=== PATIENT | female | born 1980 | race Caucasian/White ===

== ENCOUNTER 2016-04-19 23:11 | Inpatient (IN) | payer OTHER ==
[~2016-04-19] VITALS: Ht 167.6 cm; Wt 80.0 kg
[2016-04-19] MEDS ORDERED: PRENTAB9 PO (23:15)
[2016-04-20] MEDS ORDERED: LR 1,000 ML IV SCH (00:15)
--- NOTE | 2016-04-20 00:29 | HPEPDOC ---
Obstetrical History & Physical General Date of Admission Apr 20, 2016 at 00:09 History of Present Illness 35 y/o at 39+0 for reg ctx's and had LOF just as I was starting to interview her. [place]. Copious fluid noted and nitr pos. Cx 3/80/-2. Vtx well applied. Chief Complaint: Contractions, term, LOF, term Care Care: Good Care Dating Final EDC: Apr 27, 2016 Final EDC by: LMP, 2nd trimester (US) Antepartum Course Diagnos(e)s AMA with [place] neg (girl) H/O depression currently doing well H/O exercise induced asthma Admission Weight (lbs.): 186 Past Medical History Past Obstetrical History : Past Obstetrical History: Multigravida Type of Delivery: Spontaneous Vaginal Del. 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: No pertinent history Past Medical History Medical History depression, EI asthma Family History Significant Family History: No pertinent family hx Family History no CA Social History Social history No E/T/D Marital Status: Family situation: Spouse/partner home Psychosocial History: No pertinent psych hx * Smoker: non-smoker Alcohol: denies Drugs: denies Abuse Violence Screening Have you been hit/kicked/slapp: No Have you been sexually assault: No Imunizations Tdap status: current Influenza Status: current Allergies Coded Allergies: No Known Allergies (Unverified , 04/19/16) Medications Scheduled Multivitamins/ ( 27-0.8 mg) 1 Tab Tab 1 TAB PO DAILY Physical Examination Physical Examination GENERAL: Alert and oriented times three. ABDOMEN: Gravid and non-tender to touch. FETUS: Is vertex (VTX) by sterile vaginal examination (SVE) EXTREMITIES: No edema. No clonus. Laboratory Data Urine Culture: No Growth Pertinent Laboratoy Data Blood Type: A+ RBC Antibody Screen: Negative HIV: Negative Hepatitis B: Negative Hepatitis C: Unknown Rapid Plasma Reagin: Nonreactive Rubella: Immune Varicella: Unknown Chlamydia/Gonorrhea: Negative Group B Streptococcus: Negative Quad Screen Test: Declined Cystic Fibrosis: Declined Glucose Tolerance Test: 95 Anatomy Ultrasound Ultrasound Date: Dec 07, 2015 Placenta Location: Anterior Normal Anatomy: Yes Placenta Previa: No Vaginal Examination Dilation: 3 cm Effacement: 80+% Station: -2 Cervical Consistency: Medium Cervical Position: Anterior Presentation: Cephalic presentation Position: Vertex (occiput) Assessment Variability: Moderate Accelerations: Positive Decelerations: None Tocometer Contractions: Yes Frequency: regular Assessment/Plan Assessment Presents to Labor and Delivery (L&D) at 39+0 now with SROM in the room. No VB. Pos FM. NST Cat 1. Plan Admit and orient. 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 Group B Streptococcus (GBS) negative Labs and intravenous (IV) per unit protocol. Counseled on Pitocin Anticipate ormal spontaneous delivery () C-S as appropriate. I plan to recheck her in 4 hrs and if no signif change will start pitocin then. D/W pt/ and RN. SESSIONS,EMPREATRIZ Ochoa MD Apr 20, 2016 00:28
[2016-04-20 01:16] LABS: MEAN CORPUSCULAR HEMOGLOBIN 31.7 pg (27.0-33.0); MEAN CORPUSCULAR HGB CONC 34.5 g/dl (32.0-36.5); RED CELL DISTRIBUTION WIDTH 12.5 % (11.5-14.5); WHITE BLOOD COUNT 15.3 K/mm3 (4.0-10.0)
[2016-04-20] MEDS ORDERED: NALBUPHINE HCL 10 MG/ML AMP (J2300) IV ONE (01:45)
[2016-04-20] MEDS ORDERED: PROMETHAZINE INJ 25 MG/ML VIAL (J2550) IV ONE (01:45)
[2016-04-20] MEDS ORDERED: OXYTOCIN 30 UNITS IN 0.9% NaCl 500ML IV BAG (J2590) As Ordered ONE (01:54)
[2016-04-20] MEDS ORDERED: NALOXONE INJ 0.4 MG/1 ML VIAL (J2310) As Ordered ONE (02:01)
[2016-04-20] MEDS ORDERED: OXYTOCIN DRIP 30 UNITS in APPROPRIATE DILUENT 1 EA IV SCH (02:59)
[2016-04-20] MEDS ORDERED: METOCLOPRAMIDE INJ 10MG/2ML VIAL (J2765) IV PRN (03:00)
[2016-04-20] MEDS ORDERED: IBUPROFEN 800 MG TAB PO PRN (03:00)
[2016-04-20] MEDS ORDERED: MEASLES,MUMPS,RUBELLA VACCINE INJ (MMR-II) (90707) SC SCH (03:00)
[2016-04-20] MEDS ORDERED: ACETAMINOPHEN TAB 650MG DOSE (2X325MG) PO PRN (03:00)
[2016-04-20] MEDS ORDERED: DIBUCAINE 1% OINTMENT 30GM TOP PRN (03:00)
[2016-04-20] MEDS ORDERED: RHOGAM 300 MCG (1500 IU) INJ (J2790) IM SCH (03:00)
--- NOTE | 2016-04-20 03:06 | DNPDOC ---
Delivery Note Delivery Note DATE OF DELIVERY: Apr 20, 2016 at 00:09 PREDELIVERY DIAGNOSIS: 39 0/7 weeks' gestation and labor. POST DELIVERY DIAGNOSIS: Delivered. PROCEDURE: Spontaneous vaginal delivery ONLINE ADVERTISING DIRECTOR: ANESTHESIA: Nubain/Phenergan ~1 hr prior to delivery at 5 cm dilation ESTIMATED BLOOD LOSS: 200 mL. FINDINGS: 8pound 5ounce female , 3770 gm, Score 9/9 DELIVERY SUMMARY: Progressed quickly and was C/C/+1 when I was called, lots of room. Test push with great descent, I quickly gowned/gloved. Great control and del'd the vtx and shoulders w/o delay. To abd. Cord C/C. Plac intact with slight traction/massage. Pit going and fundus firm. Small 1st degr lac repaired with 3-0 vicryl. Good cosmesis/hemostasis. Sessions MD BERKOWITZ,EMPERATRIZ Ochoa MD Apr 20, 2016 03:06
[2016-04-20 05:29] VITALS: BP 136/73
[2016-04-20] MEDS: PRENATAL VITAMIN TAB PO SCH (09:02)
[2016-04-20] MEDS: DOCUSATE SODIUM 100 MG CAP PO SCH ×2 (09:02→21:53)
[2016-04-20 18:16] VITALS: BP 123/78
[2016-04-21 06:03] VITALS: BP 120/69
--- NOTE | 2016-04-21 07:03 | IPNPDOC ---
Text Note Date of Service The patient was seen on 04/21/16. NOTE prog note on 12FEB at 0237 States feeling well, no complaints. Bonding, nursing well, VB slowing, no signif pain, eating, ambulatory. VSS Ut at U-2, firm LE no CCE a/p: Doing well, d/c today, to bonding if infant not d/c'd. Sessions VS,Rafa, I+O VSRafa I+O Vital Signs Date Time Temp Pulse Resp B/P Pulse Ox O2 Delivery O2 Flow Rate FiO2 04/21/16 06:03 96.7 69 16 120/69 I&O- Last 24 Hours up to 6 AM 04/21/16 06:00 Output Total 800 ml Balance -800 ml SESSIONS,EMPERATRIZ Ochoa MD Apr 21, 2016 07:03
--- NOTE | 2016-04-21 07:06 | DS.PDOC ---
Discharge Summary General Date of Admission Apr 20, 2016 at 00:09 Date of Discharge [id number] Discharge Summary COMPLICATIONS/CHIEF COMPLAINT: ruptured membranes/labor at term ADMISSION DIAGNOSES: 1. Same as above DISCHARGE DIAGNOSES: 1. HOSPITAL COURSE: Patient was admitted in labor with ruptured membranes and had an uncomplicated natural delivery. She had an uncomplicated course thereafter. DISCHARGE MEDICATIONS: Motrin, Lanolin, Colace, Nor QD for PP control PHYSICAL EXAMINATION ON DISCHARGE: see prog note from this AM VITAL SIGNS: Please see below. DISCHARGE CONDITION: stable DISPOSITION: to home ACTIVITY: Nothing in the vagina for 6-8 weeks. Regular diet. DISCHARGE PLAN AND INSTRUCTIONS: follow up at 6 week visit Sessions Vital Signs/I&Os Vital Signs Date Time Temp Pulse Resp B/P Pulse Ox O2 Delivery O2 Flow Rate FiO2 04/21/16 06:03 96.7 69 16 120/69 I&O- Last 24 Hours up to 6 AM 04/21/16 06:00 Output Total 800 ml Balance -800 ml Medications Scheduled Multivitamins/ ( 27-0.8 mg) 1 Tab Tab 1 TAB PO DAILY Allergies Coded Allergies: No Known Allergies (Unverified , 04/19/16) SESSIONS,EMPERATRIZ Ochoa MD Apr 21, 2016 07:06
[2016-04-21] MEDS ORDERED: LIDOCAINE 1% MDV INJ 50 ML VIAL SC ONE (08:00)
[2016-04-21] MEDS ORDERED: COLA100C PO (08:35)
[2016-04-21] MEDS ORDERED: IBUP-1114 PO (08:35)
[2016-04-21] MEDS ORDERED: ACET50TA PO (08:35)
[2016-04-21] MEDS: DOCUSATE SODIUM 100 MG CAP PO SCH (09:00)
[2016-04-21] MEDS: PRENATAL VITAMIN TAB PO SCH (09:00)
== END 2016-04-21 11:30 | disposition home or self-care (01) | DRG 775 ==
LOC: M LDO 23:11 → M LDI 04-20 00:09 → M OBS 04-20 04:22
PROVIDERS: ADMIT Obstetrics & Gynecology; ATTEND Obstetrics & Gynecology
PROC: 10E0XZZ Delivery of Products of Conception, External Approach (ICD-10-PCS; principal; 2016-04-20)
PROC: 0HQ9XZZ Repair Perineum Skin, External Approach (ICD-10-PCS; 2016-04-20)
DX: O70.0 First degree perineal laceration during delivery (principal); Z37.0 Single live birth; Z3A.39 39 weeks gestation of pregnancy